=== PATIENT | female | born 1970 | race Caucasian/White ===

== ENCOUNTER 2020-04-16 13:27 | Outpatient (REF) | payer OTHER, SELFPAY ==
--- NOTE | 2020-04-16 | MM_ITS ---
EXAMINATION: MM SCREENING DIGITAL BREAST TOMOSYNTHESIS, BILATERAL CLINICAL INFORMATION: Screening. Asymptomatic. The lifetime risk of breast cancer based on the Tyrer-Cuzick Model is 15.6%. COMPARISON: Mammography: October 09, 2018 and studies dating back to July 07, 2011 TECHNIQUE: Digital breast tomosynthesis is performed in both the craniocaudal and mediolateral oblique views along with computer-aided detection (CAD). Synthesized 2D images are generated from the tomosynthesis. FINDINGS: There are scattered areas of fibroglandular density (ACR BI-RADS breast composition Category b). There are no significant masses, abnormal calcifications, or other abnormalities. Stable region of architectural distortion seen upper outer aspect of the left breast. MM/MM tomosynthesis screening BI IMPRESSION: There are no significant changes from prior study. ASSESSMENT: BI-RADS 2: Benign RECOMMENDATION: Routine annual mammography screening. This patient's information was entered into a reminder system with a target due date for their next mammogram.
== END 2020-04-16 13:28 | disposition home or self-care (01) ==
LOC: HO.MAMMO 13:27
PROVIDERS: Visit Provider Obstetrics & Gynecology
DX: Z12.31 Encounter for screening mammogram for malignant neoplasm of breast (principal)
CPT/HCPCS: 77063; 77067

== ENCOUNTER 2021-04-20 12:42 | Outpatient (REF) | payer OTHER, SELFPAY ==
--- NOTE | ~2021-04-20 | MM_ITS ---
EXAMINATION: MM SCREENING DIGITAL BREAST TOMOSYNTHESIS, BILATERAL CLINICAL INFORMATION: Screening. Asymptomatic. Family history breast cancer: Mother, maternal grandmother, maternal aunt. The lifetime risk of breast cancer based on the Tyrer-Cuzick Model is 17%. COMPARISON: Mammography: 04/16/2020, 10/09/2018, 07/10/2017, 07/03/2017, 06/20/2016; targeted right breast ultrasound 07/10/2017. TECHNIQUE: Digital breast tomosynthesis is performed in both the craniocaudal and mediolateral oblique views along with computer-aided detection (CAD). Synthesized 2D images are generated from the tomosynthesis. FINDINGS: There are scattered areas of fibroglandular density (ACR BI-RADS breast composition Category b). Parenchymal pattern is similar to prior studies. There is no interval mass or developing density or architectural abnormality. Chronic bilateral nipple retraction is again noted. There are no abnormal calcifications. The axilla are unremarkable. No significant changes. MM/MM tomosynthesis screening BI IMPRESSION: No mammographic evidence of malignancy. ASSESSMENT: BI-RADS 2: Benign RECOMMENDATION: Routine annual mammography screening. This patient's information was entered into a reminder system with a target due date for their next mammogram.
== END 2021-04-20 12:43 | disposition home or self-care (01) ==
LOC: HO.MAMMO 12:42
PROVIDERS: PCP Internal Medicine; Visit Provider Internal Medicine
DX: Z12.31 Encounter for screening mammogram for malignant neoplasm of breast (principal)
CPT/HCPCS: 77063; 77067

== ENCOUNTER 2021-08-11 12:59 | Outpatient (REF) | payer OTHER, SELFPAY ==
[2021-08-18 06:47] LABS: HPV mRNA E6/E7 rflx Not Detected (Not Detected)
== END 2021-08-11 13:00 | disposition home or self-care (01) ==
LOC: HO.LAB 12:59
PROVIDERS: PCP Internal Medicine; Visit Provider Advanced Practice Midwife
DX: Z01.411 Encounter for gynecological examination (general) (routine) with abnormal findings (principal); Z11.51 Encounter for screening for human papillomavirus (HPV); R23.2 Flushing; F41.9 Anxiety disorder, unspecified; R10.2 Pelvic and perineal pain; N93.9 Abnormal uterine and vaginal bleeding, unspecified
CPT/HCPCS: 87624; 88142

== ENCOUNTER 2021-08-25 14:24 | Outpatient (REF) | payer OTHER, SELFPAY ==
--- NOTE | ~2021-08-25 | US_ITS ---
EXAMINATION: US PELVIS CLINICAL INFORMATION: Pain COMPARISON: Previous pelvic ultrasound CT of the abdomen and pelvis from 2013 TECHNIQUE: Ultrasound of the pelvis is performed using both transabdominal and transvaginal transducers along with Doppler. Transvaginal imaging is performed due to inadequate visualization transabdominally. FINDINGS: The uterus is anteverted and measures 11.3 x 8.4 x 8.4 cm in dimension. There are multiple focal uterine lesions suggestive of fibroids. These appear increased in size and number compared to previous pelvic ultrasound. There is a 4.3 x 4.9 x 5 cm fibroid in the lower uterine segment/cervix, 3.7 x 4 x 5 cm lesion in the anterior upper uterine body, 3.4 x 2.3 x 2.9 cm lesion or subserosal to the upper anterior uterine body/fundus, 2.8 x 3.3 x 2.6 cm in the posterior uterine body and 3.7 x 2.5 x 2.1 cm in the posterior upper uterine body. The endometrium is not well visualized. The ovaries are seen transabdominally only and are normal-appearing. The right ovary measures 2.9 x 1.2 x 2.1 cm. The left ovary measures 2.3 x 0.9 x 2.1 cm. There is no fluid in the pelvis. US/US pelvic and transvaginal IMPRESSION: Enlarged fibroid uterus. Endometrium not seen secondary to fibroids. Normal-appearing ovaries.
== END 2021-08-25 14:25 | disposition home or self-care (01) ==
LOC: HO.HMGCX 14:24
PROVIDERS: PCP Internal Medicine; Visit Provider Advanced Practice Midwife
DX: R10.2 Pelvic and perineal pain (principal)
CPT/HCPCS: 76830; 76856

== ENCOUNTER 2023-04-24 13:26 | Outpatient (REF) | payer OTHER, SELFPAY | END 2023-04-24 13:27 | disposition home or self-care (01) | LOC: HO.MAMMO 13:26 | DX: Z12.31 Encounter for screening mammogram for malignant neoplasm of breast (principal) | CPT/HCPCS: 77063; 77067 ==

== ENCOUNTER → 2023-04-24 13:45 | Outpatient (BNV) | payer OTHER, SELFPAY | PROVIDERS: Visit Provider Radiology Diagnostic Radiology | DX: Z12.31 Encounter for screening mammogram for malignant neoplasm of breast (principal) | CPT/HCPCS: 77063; 77067 ==

== ENCOUNTER 2023-07-05 13:08 | Outpatient (AMB) | payer OTHER, SELFPAY ==
--- NOTE | 2023-07-05 13:11 | MHC.OFFVIS ---
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 She is doing well with no concerns. She is seen by her Senior Telecommunications Consultant provider who treats for estrogen and progesterone, unclear of the dose, used for transitioning with hot flashes, weight gain, and mood changes. Menopausal x2 years. History of large uterine fibroids. Requests refill on her Valtrex, would like enough to have daily continuous dosing at times if needed. Attempting to eat a healthy diet with calcium and vitamin D and stays active with exercise. Currently sexually active w/. Denies any vaginal dryness or irritation. STI testing offered; she declines. Last pap smear; 2021. Last mammogram; 2023. Colonoscopy is UTD. Denies any family history of breast, ovarian or colon cancer. [facility] Medical History (Updated 07/05/23 @ 14:07 by Nataliia Myles CNM) Fibroids Surgical History Hx of section Family History Mother Lymphoma History of breast cancer, Onset Age: 60 Skin cancer Father Lung cancer Social History (Updated 07/05/23 @ 13:18 by MC Ochoa) Alcohol intake: former Patient Tobacco Use Status: Never used Tobacco Sexual orientation: Straight/Heterosexual Gender identity: Female Female Reproductive History Menstrual Menopause type: natural Total pregnancies: 3 Full term: 3 Number of Living Children: 3 Date of last pap smear: 08/11/21 (neg pap and hpv) Date of Mammogram: 04/24/23 (Birad 1) Review of Systems Const All systems reviewed & are unremarkable except as noted in HPI and below Reports as per HPI Eyes Reports no additional complaints ENT Reports no additional complaints Card Reports no additional complaints Resp Reports no additional complaints GI Reports as per HPI and Reports no additional complaints Reports as per HPI Musc Reports no additional complaints Skin/Breast Reports as per HPI Neuro Reports no additional complaints Psych Reports no additional complaints Endo Reports no additional complaints Pascual/Lymph Reports no additional complaints Aller/Immun Reports no additional complaints Physical Exam Vital Signs: Last Vital Signs BP 106/74 07/05/23 13:12 BMI result Body Mass Index 21.4 Const General: cooperative, healthy appearing, no acute distress, well developed and alert Orientation/consciousness: patient oriented x3 HEENT Head: Yes normal to inspection Eyes General: appearance normal, both eyes and all related structures Neck Neck: Yes normal visual inspection Thyroid: Thyroid normal Chest Chest palpation & inspection: normal inspection of the chest and other (no puckering, dimpling, peau de orange, retraction, discharge, masses) Breast/axilla inspection: normal inspection of the breasts Breast/axilla palpation: normal palpation of the breasts Resp Effort & Inspection: normal respiratory effort GI Inspection: Yes normal to inspection Palpation (GI): Soft to palpation Rectal Exam - Female: deferred General: Yes bladder normal to palpation External Female Exam: normal external appearance and normal appearance of the urethra Speculum Exam - Vagina: normal appearance of the vagina, normal palpation and normal vaginal discharge Speculum Exam - Cervix: normal appearance of the cervix and normal palpation Bimanual exam- vagina & uterus: normal bimanual exam, normal palpation, bladder normal to palpation, normal palpation, non-tender and enlarged Bimanual Exam- Adnexa, other: no masses Skin General skin exam: no rashes or lesions noted Rashes: no rashes Neuro General: patient oriented x3 Cognition (Neuro): normal cognition Extrem General: Yes normal to inspection Psych Attitude: cooperative Thought process: Normal thought process present Assessment & Plan Assessment & Plan (1) Encounter for well woman exam with routine gynecological exam: Code(s): Z01.419 - Encounter for gynecological examination (general) (routine) without abnormal findings (2) Leiomyoma: Code(s): D21.9 - Benign neoplasm of connective and other soft tissue, unspecified Plan Discussed: Current recommendations for pap smears per ASCCP guidelines. Breast awareness, periodic self breast exams and yearly mammogram. Maintain a healthy lifestyle, well balanced diet including Calcium 1,200 mg and Vitamin D 600 IU daily, and routine exercise. Counseled re: Leiomyoma: common pelvic neoplasm. Differential diagnosis-may include leiomyosarcoma which is a rare uterine sarcoma 3-7/100,000, difficult to distinguish from fibroids on ultrasound from uterine sarcoma's. Unlikely any single test will have a highly positive predictive value. Report any postmenopausal bleeding, pelvic pressure, bloating, or pain. Ultrasound for checking fibroid stability, plan tele visit follow-up due to the patient living in [place]. Patient verbalizes understanding and agrees to the plan of care. She was given opportunity to ask questions and all questions were answered to the best of my ability. 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 This note is constructed using voice recognition software. While every effort has been made to ensure accuracy, foam machine operator errors may have been included. Orders: Orders US pelvic and transvaginal Today D21.9 - Benign neoplasm of connective and other soft tissue, unspecified Medications: Refilled valacyclovir (Valtrex) take with onset on of symptoms, take for three days, may repeat dosing per episode prn 500 mg PO BID 90 tabs 1RF
[2023-07-05 13:12] VITALS: BP 106/74; BMI 21.4
== END 2023-07-05 14:12 | disposition home or self-care (01) ==
PROVIDERS: Visit Provider Advanced Practice Midwife
DX: Z01.419 Encounter for gynecological examination (general) (routine) without abnormal findings (principal); D21.9 Benign neoplasm of connective and other soft tissue, unspecified
CPT/HCPCS: 99396

== ENCOUNTER → 2023-07-05 13:08 | Outpatient (BNVA) | payer OTHER, SELFPAY | PROVIDERS: Visit Provider Advanced Practice Midwife ==

== ENCOUNTER 2023-07-19 12:53 | Outpatient (REF) | payer OTHER, SELFPAY ==
--- NOTE | ~2023-07-19 | US_ITS ---
EXAMINATION: US PELVIS COMPLETE CLINICAL INFORMATION: Uterine fibroids; postmenopausal patient. COMPARISON: Pelvic ultrasound dated 08/25/2021. TECHNIQUE: Transabdominal and transvaginal imaging were performed. FINDINGS: The uterus is of normal size and echogenicity, measuring 12.5 x 7.9 x 9.3 cm. The uterus is anteverted. The endometrial stripe is poorly visualized due to uterine fibroids. FIBROIDS: There are 5 fibroids seen. 1. Location: Lower uterine segment, myometrial. Size: 6.4 x 5.9 x 6.8 cm. Prior: 4.3 x 4.9 x 5.0 cm. Fibroid characteristics: Heterogeneous echotexture. 2. Location: Anterior upper body, myometrial. Size: 3.8 x 2.7 x 4.0 cm. Fibroid characteristics: Heterogeneous echotexture. 3. Location: Anterior upper body, subserosal. Size: 2.4 x 1.5 cm. Prior: 3.4 x 2.3 x 2.9 cm. Fibroid characteristics: Hypoechoic. 4. Location: Posterior upper body, myometrial. Size: 2.6 x 2.8 x 2.5 cm. Prior: 2.8 x 3.3 x 2.6 cm. Fibroid characteristics: Heterogeneous echotexture. 5. Location: Posterior upper body, myometrial. Size: 2.9 x 2.7 x 3.1 cm. Prior: 3.7 x 2.5 x 2.1 cm Fibroid characteristics: Heterogeneous echotexture. Both ovaries are of normal size and echogenicity. The right ovary measures 1.2 x 1.3 x 0.9 cm for a volume of 0.7 mL. The left ovary measures 1.3 x 1.5 x 1.0 cm for a volume of 1.0 mL. There is no pelvic free fluid. No adnexal mass is seen. US/US pelvic and transvaginal IMPRESSION: There is uterine fibroid disease. Otherwise, unremarkable examination.
== END 2023-07-19 12:54 | disposition home or self-care (01) ==
LOC: HO.US 12:53
PROVIDERS: Visit Provider Advanced Practice Midwife
DX: D21.9 Benign neoplasm of connective and other soft tissue, unspecified (principal)
CPT/HCPCS: 76830; 76856

== ENCOUNTER 2023-08-15 15:40 | Outpatient (AMB) | payer OTHER, SELFPAY ==
--- NOTE | 2023-08-15 15:40 | MHC.OFFVIS ---
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 Phone call due to Covid 19 Pandemic. I spent 10 minutes speaking with the patient on the phone plus an additional 5 minutes reviewing the chart and 5 minutes updating the medical record for a total of 20minutes. Patient presents via phone to discuss: Ultrasound results, history of uterine fibroids, she reports discomfort with her fibroids. Menopausal x2 years, no history of postmenopausal bleeding. [facility] Medical History (Updated 08/15/23 @ 16:37 by Nataliia Myles CNM) Fibroids Surgical History Hx of section Family History Mother Lymphoma History of breast cancer, Onset Age: 60 Skin cancer Father Lung cancer Social History Alcohol intake: former Patient Tobacco Use Status: Never used Tobacco Patient : No Sexual orientation: Straight/Heterosexual Gender identity: Female Female Reproductive History Menstrual control method: none Review of Systems Const All systems reviewed & are unremarkable except as noted in HPI and below Endo Reports no additional complaints Physical Exam Const General: cooperative, healthy appearing and no acute distress Psych Appearance: well kempt Attitude: cooperative Thought process: Normal thought process present Telehealth Telehealth Telehealth Platform: [employer] Location of provider rendering services: practice address Location of patient: address on file Patient Identification confirmed using: Name, : Yes Telehealth method: video Patient verbally consented to treatment: Yes Patient verbally consented to billing insurance company: Yes Patient informed of any privacy concerns related to visit: Yes Assessment & Plan Assessment & Plan (1) Uterine fibroid: Code(s): D25.9 - Leiomyoma of uterus, unspecified Category: Medical Qualifiers: Uterine leiomyoma location: unspecified location Qualified Code(s): D25.9 - Leiomyoma of uterus, unspecified Plan: Discussed: Ultrasound findings reviewed, 1 of the larger fibroid with increased size noted over the last 2 years, ongoing discomfort from fibroids. Counseled re: Leiomyoma: common pelvic neoplasm. Differential diagnosis-may include leiomyosarcoma which is a rare uterine sarcoma 3-7/100,000, difficult to distinguish from fibroids on ultrasound from uterine sarcoma's. Unlikely any single test will have a highly positive predictive value. Hysterectomy is not recommended for sole purpose of excluding malignant neoplasm. Report any PMB. Pelvic pressure, bloating, or pain. Consult for surgical exploration verses expectant management discussed. Patient prefers consult for surgical removal or other options. Referral placed to pilot submersible at [facility]. All of her questions and concerns were addressed to the best of my ability and shared decision making. She is agreeable to the plan of care. This note is constructed using voice recognition software. While every effort has been made to ensure accuracy, computer systems auditor errors may have been included. Orders: Referrals INTAKE MANAGER Referral D25.9 - Leiomyoma of uterus, unspecified Coding Level of Care Code Tele Est Pt Level 3 (07055) Diagnoses Uterine leiomyoma, unspecified location D25.9 Uterine leiomyoma location: unspecified location
== END 2023-08-15 16:28 | disposition home or self-care (01) ==
LOC: HO.HWS 15:40
PROVIDERS: Visit Provider Advanced Practice Midwife
DX: D25.9 Leiomyoma of uterus, unspecified (principal)
CPT/HCPCS: 99213

== ENCOUNTER → 2023-08-15 15:40 | Outpatient (BNVA) | payer OTHER, SELFPAY | PROVIDERS: Visit Provider Advanced Practice Midwife ==

== ENCOUNTER 2024-05-14 14:32 | Outpatient (REF) | payer OTHER, SELFPAY ==
--- OUTSIDE RECORDS SUMMARY | 2024-05-14 17:59 | XMS_ITS | Clinical Summary ---
[facility] Address [address] [place] [address] Care Team Providers Care Installer Metal Flooring Name Role Phone Syl Mattson Primary Care Provider [phone] Allergies No known active allergies Medications multivitamin capsule Take 1 capsule by mouth daily. Active Lactobacillus rhamnosus (CULTURELLE) 10 billion cell capsule Take 1 capsule by mouth daily. 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 Bilateral nephrolithiasis 10/05/2020 Left ureteral stone 10/05/2020 Social History Tobacco Use Types Packs/Day Years Used Date Smoking Tobacco: Never Smokeless Tobacco: Never Alcohol Use Standard Drinks/Week Comments Yes 0 (1 standard drink = 0.6 oz pur e alcohol) Comments Unknown Sex and Gender Information Value Date Recorded Sex Assigned at Female 09/28/2020 10:42 AM EDT Legal Sex Female 2:52 PM EDT Gender Identity Female 09/28/2020 10:42 AM EDT Sexual Orientation Not on file Last Filed Vital Signs Vital Sign Reading Time Taken Comments Blood Pressure - - Pulse - - Temperature - - Respiratory Rate - - Oxygen Saturation - - Inhaled Oxygen Concentration - - Weight 62.6 kg (138 lb) 11/02/2020 2:04 PM EDT Height 172.7 cm (5' 8 ) 11/02/2020 2:04 PM EDT Body Mass Index 20.98 11/02/2020 2:04 PM EDT Plan of Treatment Not on file Insurance [employer] Care Teams Installer Metal Flooring Relationship Specialty Start Date End Date Syl Mattson [address] [place] [address] PCP - General 09/15/20
--- OUTSIDE RECORDS SUMMARY | 2024-05-14 17:59 | XMS_ITS | Continuity of Care Document ---
Author Organization [facility]. If a dditional information is needed, contact Health Information Management at [phone] Address [address] [place] [address] Phone Care Team Providers Care Supercharge Repair Supervisor Name Role Phone Unavailable Unavailable Unavailable Unavailable Unavailable Unavailable Unavailable Unavailable Unavailable Unavailable Unavailable Unavailable Unavailable Unavailable Unavailable Unavailable Unavailable Unavailable Unavailable Unavailable Unavailable Unavailable Unavailable Unavailable Unavailable Unavailable Unavailable Unavailable Unavailable Unavailable Unavailable Unavailable Unavailable Problems Cystitis Onset:22-Sep-2023 Leonard BELTRÁN Status:Acute Uterine leiomyoma Onset:22-Sep-2023 Leonard BELTRÁN Status:Acute Uterine leiomyoma Onset:22-Sep-2023 Leonard BELTRÁN Status:Acute Urinary tract infectious dis ease Onset:10-Sep-2020 Aviva Cohn DO Left flank pain Onset:10-Sep-2020 Aviva Cohn DO Ureteric stone Onset:07-Sep-2020 Berkley Llanos MD Neck pain Onset:04-Sep-2018 Roger Cohn DO Muscle spasm of cervical mus luna of neck Onset:04-Sep-2018 Roger Cohn DO Allergies and Adverse Reactions No Known Allergies(Allergy) Onset: 21-Sep-2023 Medications iopamidoL 76%;100 ML ONCE Quantity:1 Arncristi Corin DO Start:7-Ram-0014Bjc:21-Sep-19 24 cefTRIAXone;1 G X1ED Quantity:1 Leonard BELTRÁN Start:2-Wzy-8249Osc:21-Sep-19 10 ML sodium chloride 9 MG/M L Injection;1500 ML X1ED Quantity:2 Leonard BELTRÁN Start:5-Gdk-8600Nix:21-Sep-19 24 sulfamethoxazole 800 mg-trimethoprim 160 mg tablet;1 tab PO BID Start:21-Sep-2023 Comments:1 tab PO BID Procedures CT abdomen pelvis w conResult:[address] [facility] [place] [address] [place] Scan Report SignedPatient: Emily Stoner MR#: [id number]: 1970 Acct:[id number]/Sex: 53 / F ADM Date: 09/21/23Loc/Rm/Bed: EMERGENCY ROOM SERVICES /Attending Dr:Ordering Physician: ANTOINETTE Buckate of Service: 09/21/23Procedure(s): CT abdomen pelvis w conAccession Number(s): [id number]: .NO PCP; JEREL Buck PATIENT NAME: Emily Stoner ( ) PATIENT DATE OF : 1970 (53 years old) PROCEDURES: CT abdomen pelvis w con ORDERING CLINICIAN: JEREL Buck REQUISITION HISTORY: fever, R CVA tenderness EXAM: CT scan of the abdomen and pelvis with contrast INDICATION: fever, R CVA tenderness. TECHNIQUE: Contiguous 5 mm helically acquired axial images of the abdomen and pelvis were obtainedfollowing uneventful intravenous administration of contrast. Sagittal and coronal reformations were also provided. One or more of the following dose optimization techniques were used: automated exposure control;adjustment of the mA and/or kV according to patient size; use of iterative reconstruction technique. [facility] QUALITY MEASURES #364 and #405: Appropriate follow-up imaging for incidental lesions: In this report, any dictated pulmonary nodule, adrenal lesion, or cystic renal lesion withoutstated specific follow-up recommendations is to be considered incidental and per consensus recommendations requires nofollow-up imaging. (Bryanna et al., 2017) MIPS QUALITY MEASURE #406: Appropriate follow-up imaging for incidental lesions: In this report, any dictated thyroid nodule without stated specific follow-up recommendations is gm considered incidental and per consensus recommendations requires no follow-up imaging (ACR, 2014). SOURCE: Bryanna H, Frank DP, Abel JM, et al. Guidelines for Management of Incidental PulmonaryNodules Detected on CT Images: From the Fleischner Society 2017. Radiology. 2017 b 23:670007. MIPS Quality Measure #360: Count of CT/Cardiac NM Imaging Studies: In the past twelve months, including the current scan, the patient has had 1 CT scans, and 0myocardial perfusion scans. INTRAVENOUS CONTRAST: Isovue 370, 100 ml. ORAL CONTRAST: None COMPARISON: CT scan of the abdomen and pelvis 09/07/2020ORDER #: [id number] CT/CT abdomen pelvis w conFINDINGS/IMPRESSION:Since 2020, the patient has lost a significant amount of adipose.No biliary obstruction.Bilateral nephrolithiasis, unchanged. Mild right hydronephrosis without an obstructing stone.Nonspecific urothelialenhancement involving the right and left ureters. These findings can be seen with recent passage ofa urinary stone.Correlate with urinalysis looking for hematuria. Urothelial enhancement of the ureters can also beseen with underlyingurinary tract infection. This can also be correlated with urinalysis an urine culture.Nonspecific gallbladder hydrops. No cholecystitis.Unchanged large fibroid uterus with numerous bulky leiomyomata compressing the urinary bladder andadjacent loops ofbowel.Electronically signed by: LOIDA SALAZAR DO 09/21/2023 7:32 PM Signed on workstation: [id number] By: Loida Salazar DOSigned By: <Electronically signed by Loida Salazar DO in OV> 09/21/23 1932DD/ TD/TT: Dental Patient Coordinator: Date:21-Sep-2023 Status:Completed EKG 12 lead electrocardiogramResult:[place] [address] Electrocardiogram Report SignedPatient: Emily Stoner MR#: [id number]: 1970 Acct:[id number]/Sex: 53 / F ADM Date: 09/21/23Loc/Rm/Bed: EMERGENCY ROOM SERVICES / Date of Service: 09/21/23Attending Dr: Corin Santana DOcc:Test Reason : Blood Pressure : / mmHG Vent. Rate : 084 BPM Atrial Rate : 084 BPM P-R Int : 146 ms QRS Dur : 078 ms QT Int : 342 ms P-R-T Axes : 031 020 038 degrees QTc Int : 404 ms Normal sinus rhythm Low voltage QRS Borderline ECG When compared with ECG of 04-SEP-2018 19:07, Nonspecific T wave abnormality now evident in Anterior leads Confirmed by NEWTON MORTENSEN ([id number]) on 09/23/2023 5:21:14 PM Referred By: Self Referred Confirmed By:NEWTON SMITHISDictated By: Brennon Dao By: <Electronically signed by Newton Mortensen DO in OV> 09/23/23 1721DD/ TD/TT: 09/21/231818 Dental Patient Coordinator: Date:21-Sep-2023 Status:Completed Social History Smoking Status Never smoked tobacco Recorded: 10-Sep-2020 Never smoked tobacco Recorded: 07-Sep-2020 Tobacco smoking consumption unknown Recorded: Results Complete Blood Count w Diff Ordered On:21-Sep-2023 18:35 Basophils Absolute Auto0.0210*3/uL(Normal) Range:010*3/uL-0.210*3/uL Basophils Percent Auto0.2% Eosinophils Absolute Auto0.0310*3/uL(Normal) Range:010*3/uL-0.810*3/uL Eosinophils Percent Auto0.2% Hematocrit Gvrvoo71.7%(Normal) Range:34%-44% Hemoglobin kkwcae84.4g/dL(Normal) Range:11g/dL-15g/dL Immature Granulocyte s Abs Auto0.0410*3/uL(High) Range:0.0110*3/uL-0.0210*3/uL Immature Granulocyte s Pct Auto0.3% Lymphocytes Absolute Auto1.1110*3/uL(Normal) Range:0.610*3/uL-510*3/uL Lymphocytes Percent Auto8.6% MEAN CELL HGB32.8pg(Normal) Rang e:27pg-33pg MEAN CELL HGB YVDKYMGLITZNI83.6g/dL(Normal) Range:31g/dL-36g/dL MEAN CELL FHLPON88.9fL(Normal) Range:80fL-100fL Monocytes Absolute Auto1.7710*3/uL(High) Range:010*3/uL-1.310*3/uL Monocytes Percent Auto13.8% MEAN PLATELET WIIIXI69.5fL(Normal) Range:7fL-11fL Neutrophils Absolute Auto9.8810*3/uL(High) Range:1.410*3/uL-8.310*3/uL Neutrophils Percent Auto76.9% NRBC Absolute Auto0.0010*3/uL(Normal) Range:010*3/uL-0.0110*3/uL NRBC Percent Auto0.0% Platelet Mtirt99154*3/uL(Normal) Range:21644*3/uL-60339*3/uL RED BLOOD CELL4.0810*6/uL(Normal) Range:3.710*6/uL-5.110*6/uL RDW Standard Qtmrbyums77.9fL(Normal) Range:36.4fL-46.3fL WHITE BLOOD CELL12.8510*3/uL(High) Range:3.910*3/uL-1110*3/uL Prothrombin Time INR Ordered On:21-Sep-2023 18:49 INR1.1(Low) Range:2-3 Comments:INR reference interval applies to patients on anticoagulanttherapy. Suggested INR therapeutic range for oralanticoagulant therapy (stabilized anticoagulated patients): Routine Therapy: 2.0 - 3.0 Recurrent Myocardial Infarction or Mechanical Prosthetic Valves: 2.5 - 3.5 Prothrombin Time12.3{sec}(High) Range:9.5{sec}-12.1{sec} Comprehensive Metabolic Panel Ordered On:21-Sep-2023 19:31 Albumin Globulin Ratio0.67 ALBUMIN3.1g/dL(Low) Range:3.4g/d L-5g/dL Alkaline Phosphatase ALP77{Units/L}(Normal) Range:45{Units/L}-117{Units/L} Alanine Aminotransfe rase ALT27{Units/L}(Normal) Range:13{Units/L}-61{Units/L} Aspartate Aminotrans ferase AST14{Units/L}(Low) Range:15{Units/L}-37{Units/L} BUN Creatinine Ratio13.3(Normal) Range:8-27 Bilirubin Total0.6mg/dL(Normal) Range:0.2mg/dL-1mg/dL Blood Urea Zorxnznr83cd/dL(Normal) Range:10mg/dL-24mg/dL Calcium9.3mg/dL(Normal) Range:8. 5mg/dL-10.1mg/dL CORRECTED LDESIFC14.0mg/dL(Normal) Range:8.5mg/dL-10.1mg/dL Mnahxqdh424haiq/L(Normal) Range: 98mmol/L-108mmol/L Carbon Mblmyja04obsm/L(Normal) Range:21mmol/L-32mmol/L ESTIMATED CREATININE CLEAR63.3 CREATININE0.83mg/dL(Normal) Rang e:0.55mg/dL-1.02mg/dL Estimated Glomerular Filt Rate83.2(Normal) Range:>=60 mL/min/1.73m2 ANION GAP8(Normal) Range:5-15 Globulin4.6{gm/dL}(High) Range:1 .9{gm/dL}-4.5{gm/dL} GLUTETHIMIDE (DORADEM)118mg/dL(High) Range:74mg/dL-106mg/dL POTASSIUM3.5mmol/L(Normal) Range :3.5mmol/L-5.1mmol/L Fkdqgy721ynkf/L(Normal) Range:13 5mmol/L-145mmol/L Total Protein7.7g/dL(Normal) Ran ge:6.4g/dL-8.2g/dL Magnesium Ordered On:21-Sep-2023 19:31 Magnesium1.9mg/dL(Normal) Range :1.6mg/dL-2.6mg/dL Lactic Acid Ordered On:21-Sep-2023 19:56 Lactic Acid1.2mmol/L(Normal) Ra nge:0.4mmol/L-2mmol/L Blood Culture Ordered On:21-Sep-2023 Comments:[place] owens Comments: Comment PRIOR TO ANTIBIOTICS FROM 2 DIFFERENT SITES 26-Sep-2023 18:25 Blood CultureNo grow th in 5 days Blood Culture Ordered On:21-Sep-2023 18:41 Blood CultureNo grow th in 5 days Urinalysis w/Cul if indicated Ordered On:21-Sep-2023 Comments:Specimen Comments: Indication for culture Dysuria/frequencyNoteUrinary Catheters in place >14 days may have biofilmpresent. Consider changing before collection unlesscontraindicated.Clean catch midstream 21-Sep-2023 18:34 UA APPEARANCEClear Range:Clear UA BILIRUBIN DIPSTICKSmallmg/dL(Abnormal) Range:Negative mg/dL UA BLOOD DIPSTICKModeratemg/dL(Abnorma l) Range:Negative mg/dL UA COLORDark Yellow(Abnormal) Ra nge:Yellow UA Glucose DipstickNegativemg/dL Range:Negative mg/dL UA KETONE IRELGJGH41wt/dL(Abnormal) Range:Negative mg/dL UA LEUKOCYTE ESTERAS E DIPSTICKTrace{Kendrick/uL}(Abnorma l) Range:Negative Kendrick/uL UA NITRITE DIPSTICKNegative Rang e:Negative UA PH DIPSTICK6.0(Normal) Range: 5-8 UA PROTEIN OGMAKUEW51cg/dL(Abnormal) Range:Negative mg/dL UA SPECIFIC GRAVITY1.018(Normal) Range:1.005-1.03 Urine Microscopic IndicatedYes(Abnormal) UA Urobilinogen Dipstick1.0EU/dL Range:0.2EU/dL-1EU/dL 21-Sep-2023 18:39 Bacteria Urine (Automated)None Seen{/hpf} Range:None Seen /HPF Hyaline Cast Urine (Automated)0-8{/lpf} Range:None Seen /LPF Squamous Epithelial Ur (Auto)>50{/lpf}(Abnormal) Range:None Seen /LPF RBC Urine (Automated)10-50{/hpf}(Abnorm al) Range:None Seen /hpf Urine Culture IndicatedNo WBC Urine (Automated)6-10{/hpf}(Abnorma l) Range:0{/hpf}-5{/hpf} Vital Signs 21-Sep-2023 19:23 Ikfeiwjbfuy86h Vooatwllizc39.2c O2 SAT98% Pulse79 Respiratory Rate17 BP Sskbambz903tv[Hg] BP Vchhabycm84fc[Hg] 21-Sep-2023 18:14 Pulse86 21-Sep-2023 18:02 Qestcjxivdb321.9f Nzokvfrudsb88.3c O2 SAT97% Pulse91 Respiratory Rate16 BMI21.1kg/m2 BP Qwnrsvty188is[Hg] BP Xpvjmonre76mv[Hg] Height5.8670331[ft_us] Ccnzxt226.48cm Yurucq971.415883na Encounters Emergency Encounter Reason:WORSENING UTI SX Encounter Diagnosis:Cystitis, unspecified without hematuria,Hydronephrosis with renal and ureteral calculous obstruction,Leiomyoma of uterus, unspecified 21-Sep-2023 18:02Zs4-Gmr-8932 20:32 [facility] Discharge Disposition:Discharged to home or self care (routine discharge) ? ? ? Leonard BELTRÁN-21-Sep-2023 [facility] [place] [address] [place] [address] Emergency Department Note SignedPatient: Emily Stoner MR#: [id number]: 1970 Acct:[id number]/Sex: 53 / F ADM/SRV Date: 09/21/23Loc: F.ED Service Date: 09/21/23Attending Dr: Service Time: 1809cc: Report ID#: [id number] by User: JEREL Buck 09/21/23 23:12EM-HPI:Gen/Med Clear/Rx RefillFree Text HPI NotesThis is a 53-year-old female with a history of nephrolithiasis presenting here today for theevaluation of fever, flank pain, and abdominal pain. She states she was diagnosed with cystitis onSunday but is overall had symptoms since Sunday. She was started on Macrobid. She reports thatthe preceding symptoms are typical for her when she has a bladder infection. She reports she doesnot typically get dysuria or urinary frequency, and does not have any of this today. Denies chestpain, shortness of breath, nausea, vomiting, diarrhea, or constipation.PresentationTime Seen by Provider: 09/21/23 18:09Chief Complaint Text: Abdominal and flank painEM-Review of SystemsROS StatementsAll systems rev neg: except as marked.Review of SystemsConstitutional: Reports FeverGI: Reports Abdominal painGU Female: Reports Flank painEM-PE:Gen/Med Clear/Rx RefillFree Text PE NotesGen: well hydrated, no acute distress, afebrileHEENT: normocephalic, atraumaticPulm: normal breath sounds bilaterally, clear to auscultation in all espitia without rales, ronchi,or wheezesChest: equal expansion bilaterallyCV: normal rate, regular rhythm, normal s1/s2, no murmurs, rubs, or gallopsAbd: soft, suprapubid tenderness, non- distended, + guarding, R CVA tendernessMSK: normal range of motion with grossly normal extremitiesNeuro: alert and orientedPsych: normal mood and affectVital SignsReview of Vital Signs: Reviewed and Vital signs abnormal Vital SignsTemperature 100.9 F H 09/21/23 18:02Pulse 91 09/21/23 18:02Respiratory rate 16 09/21/23 18:02Blood pressure 111/70 09/21/23 18:02SPO2 % 97 09/21/23 18:02Oxygen delivery devices Room air 09/21/23 18:02Temperature 99.0 F 09/21/23 19:23Pulse 79 09/21/23 19:23Respiratory rate 17 09/21/23 19:23Blood pressure 121/70 09/21/23 19:23SPO2 % 98 09/21/23 19:23Oxygen delivery devices Room air 09/21/23 19:23EM-Interp DiagnosticsLabs/Imaging/Results/Old Records 09/21/23 18:20 09/21/23 18:20All Labs/Micro/Interp Last 24 Hrs:Laboratory Results - last 24 hr 09/21/23 09/21/23 18:20 18:14WBC 12.85 HRBC 4.08Hgb 13.4Hct 38.7MCV 94.9MCH 32.8MCHC 34.6RDW Std Deviation 42.9Plt Count 268MPV 10.5Immature Gran % (Auto) 0.3Neut % (Auto) 76.9Lymph % (Auto) 8.6Mono % (Auto) 13.8Eos % (Auto) 0.2Baso % (Auto) 0.2Abs Immat Gran (auto) 0.04 HAbsolute Neuts (auto) 9.88 HAbsolute Lymphs (auto) 1.11Absolute Monos (auto) 1.77 HAbsolute Eos (auto) 0.03Absolute Basos (auto) 0.02Absolute Nucleated RBC 0.00Nucleated RBC % (auto) 0.0PT 12.3 HINR 1.1 LSodium 136Potassium 3.5Chloride 103Carbon Dioxide 25Anion Gap 8BUN 11Creatinine 0.83Estimated Creat Clear 63.3Estimated GFR 83.2BUN/Creatinine Ratio 13.3Glucose 118 HLactic Acid 1.2Calcium 9.3Corrected Calcium 10.0Magnesium 1.9Total Bilirubin 0.6AST 14 LALT 27Alkaline Phosphatase 77Total Protein 7.7Albumin 3.1 LGlobulin 4.6 HAlbumin/Globulin Ratio 0.67Urine Color Dark Yellow AUrine Appearance ClearUrine pH 6.0Ur Specific [place] 1.018Urine Protein 30 AUrine Glucose (UA) NegativeUrine Ketones 40 AUrine Blood Moderate AUrine Nitrite NegativeUr Bilirubin, Qual Small AUrobilinogen Dipstick 1.0Ur Leukocyte Esterase Trace AUr Microscopic Indic Yes AUrine WBC (Auto) 6-10 AUrine RBC (Auto) 10-50 AU Hyaline Cast (Auto) 0-8Urine Bacteria (Auto) None SeenSquamous Epi Cells Auto >50 AUr Culture Indicated? NoImpressionsAbdomen/Pelvis CT 09/21/23 18:55FINDINGS/IMPRESSION:Since 2020, the patient has lost a significant amount of adipose.No biliary obstruction.Bilateral nephrolithiasis, unchanged. Mild right hydronephrosis without an obstructing stone.Nonspecific urothelialenhancement involving the right and left ureters. These findings can be seen with recent passage ofa urinary stone.Correlate with urinalysis looking for hematuria. Urothelial enhancement of the ureters can also beseen with underlyingurinary tract infection. This can also be correlated with urinalysis an urine culture.Nonspecific gallbladder hydrops. No cholecystitis.Unchanged large fibroid uterus with numerous bulky leiomyomata compressing the urinary bladder andadjacent loops ofbowel.Electronically signed by: LOIDA SALAZAR DO 09/21/2023 7:32 PM Signed on workstation: [id number]:Gen/Med Clear/Rx RefillFree Text MDM NotesThis on her exam there is some concern for possible pyelonephritis. She also has a history ofnephrolithiasis and there is the potential for an infected renal calculus. Her presentation isadditionally complicated by known fibroids which have been recommended to be taken out, however sheis pursuing a 2nd opinion in [place] in the near future. It is possible that some of the sensationshe is currently experiencing could be related to mass effect. Upon her arrival she also metcriteria for sepsis with a heart rate greater than 90 and temperature of 100.9F. She will beevaluated with a CBC, CMP, PT/INR, lactic, cultures, urinalysis, and CT of her abdomen pelvis. 1 gof Rocephin is given as well as a 30 cc per kg ideal body weight fluids.An EKG was performed. This was reviewed and interpreted by myself and shows normal sinus rhythmwith a heart rate of 84 beats per minute. Her WI, QRS, and QTC are of normal duration. She hasdiffuse T-wave flattening. There are no ST T-wave abnormalities concerning for acute ischemia. Herwhite blood count returned at 12.85. Her PT and INR were minimally abnormal. There were no priorsfor comparison. Her electrolytes and renal function is within normal limits. Her lactic is 1.2.Her urinalysis is contaminated, but potential consistent with infection. Her CT showed irritationof the proximal ureters potentially consistent with infection verses recent passing of stones. Nostones were identified. There was no perinephric stranding. She was also noted to have compressionof her bladder and bowel secondary to her fibroids.These results were discussed with the patient. Her Macrobid will be changed to Bactrim. She willfollow-up with her cardiac rehabilitation program director to discuss excision of the fibroids. She is stable at the time ofdischarge given return precautions.Portions of this document were created using voice dictation and as a result may inadvertently include minor errors. Please consider context when interpreting. inED CourseMedication(s) Ordered:Discontinued Medication Ysivld76/05/24 18:11cefTRIAXone [Rocephin] 1 g water for injection,sterile [Sterile Water for injection 10 mL] 10 mlIV X1ED Rx Indication:: UTI-Cystitis Rx Duration in Doses:: 1sodium chloride 0.9% [Normal Saline 1,000 mL] 1,500 ml IV X1ED09/21/23 19:19iopamidoL 76% [Isovue-370] 100 ml IV ONCE ONEDischarge PlanED Discharge PlanClinical Impression: Fibroid, uterine, Leiomyoma of body of uterus, CystitisDisposition Decision: Discharge to homeDate of Decision: 09/21/23Time of Decision: 20:18Prescriptions:New sulfamethoxazole-trimethoprim [Bactrim DS] 800-160 mg tablet 1 tab PO BID Qty: 20 0RFPatient Education: [facility] ED Standard Education for ...Dispo Assessment:Disposition-DC,TX,ADM,LPT Last Done: 09/21/23 20:31Activity Restrictions/Additional Instructions:You were seen in the ER today for pain in the setting of a bladder infection. There is no CTevidence of pyelonephritis today, but there is at least some irritation of the ureters very close tothe kidneys. It is also possible a large amount of your discomfort is related to your uterinefibroid. Your antibiotic has been changed. Please seek re-evaluation for worsening rather thanimproving symptoms.Condition: FairED Midlevel Provider: Lucretia Valle Provider: Pam Santana-Depart/Critical CareVital SignsVital Signs: Vital SignsTemperature 100.9 F H 09/21/23 18:02Pulse 91 09/21/23 18:02Respiratory rate 16 09/21/23 18:02Blood pressure 111/70 09/21/23 18:02SPO2 % 97 09/21/23 18:02Oxygen delivery devices Room air 09/21/23 18:02Temperature 99.0 F 09/21/23 19:23Pulse 79 09/21/23 19:23Respiratory rate 17 09/21/23 19:23Blood pressure 121/70 09/21/23 19:23SPO2 % 98 09/21/23 19:23Oxygen delivery devices Room air 09/21/23 19:23 Docum ented by User: Efren Hayden MD 09/22/23 01:34EM-HPI:Gen/Med Clear/Rx RefillPresentationTime Seen by Provider: 09/21/23 18:09EM-PE:Gen/Med Clear/Rx RefillVital Signs Vital SignsTemperature 100.9 F H 09/21/23 18:02Pulse 91 09/21/23 18:02Respiratory rate 16 09/21/23 18:02Blood pressure 111/70 09/21/23 18:02SPO2 % 97 09/21/23 18:02Oxygen delivery devices Room air 09/21/23 18:02Temperature 99.0 F 09/21/23 19:23Pulse 79 09/21/23 19:23Respiratory rate 17 09/21/23 19:23Blood pressure 121/70 09/21/23 19:23SPO2 % 98 09/21/23 19:23Oxygen delivery devices Room air 09/21/23 19:23EM-Interp DiagnosticsLabs/Imaging/Results/Old Records 09/21/23 18:20 09/21/23 18:20All Labs/Micro/Interp Last 24 Hrs:Laboratory Results - last 24 hr 09/21/23 09/21/23 18:20 18:14WBC 12.85 HRBC 4.08Hgb 13.4Hct 38.7MCV 94.9MCH 32.8MCHC 34.6RDW Std Deviation 42.9Plt Count 268MPV 10.5Immature Gran % (Auto) 0.3Neut % (Auto) 76.9Lymph % (Auto) 8.6Mono % (Auto) 13.8Eos % (Auto) 0.2Baso % (Auto) 0.2Abs Immat Gran (auto) 0.04 HAbsolute Neuts (auto) 9.88 HAbsolute Lymphs (auto) 1.11Absolute Monos (auto) 1.77 HAbsolute Eos (auto) 0.03Absolute Basos (auto) 0.02Absolute Nucleated RBC 0.00Nucleated RBC % (auto) 0.0PT 12.3 HINR 1.1 LSodium 136Potassium 3.5Chloride 103Carbon Dioxide 25Anion Gap 8BUN 11Creatinine 0.83Estimated Creat Clear 63.3Estimated GFR 83.2BUN/Creatinine Ratio 13.3Glucose 118 HLactic Acid 1.2Calcium 9.3Corrected Calcium 10.0Magnesium 1.9Total Bilirubin 0.6AST 14 LALT 27Alkaline Phosphatase 77Total Protein 7.7Albumin 3.1 LGlobulin 4.6 HAlbumin/Globulin Ratio 0.67Urine Color Dark Yellow AUrine Appearance ClearUrine pH 6.0Ur Specific [place] 1.018Urine Protein 30 AUrine Glucose (UA) NegativeUrine Ketones 40 AUrine Blood Moderate AUrine Nitrite NegativeUr Bilirubin, Qual Small AUrobilinogen Dipstick 1.0Ur Leukocyte Esterase Trace AUr Microscopic Indic Yes AUrine WBC (Auto) 6-10 AUrine RBC (Auto) 10-50 AU Hyaline Cast (Auto) 0-8Urine Bacteria (Auto) None SeenSquamous Epi Cells Auto >50 AUr Culture Indicated? NoImpressionsAbdomen/Pelvis CT 09/21/23 18:55FINDINGS/IMPRESSION:Since 2020, the patient has lost a significant amount of adipose.No biliary obstruction.Bilateral nephrolithiasis, unchanged. Mild right hydronephrosis without an obstructing stone.Nonspecific urothelialenhancement involving the right and left ureters. These findings can be seen with recent passage ofa urinary stone.Correlate with urinalysis looking for hematuria. Urothelial enhancement of the ureters can also beseen with underlyingurinary tract infection. This can also be correlated with urinalysis an urine culture.Nonspecific gallbladder hydrops. No cholecystitis.Unchanged large fibroid uterus with numerous bulky leiomyomata compressing the urinary bladder andadjacent loops ofbowel.Electronically signed by: LOIDA SALAZAR DO 09/21/2023 7:32 PM Signed on workstation: [id number]:Gen/Med Clear/Rx RefillED CourseMedication(s) Ordered:Discontinued Medication Oyfnkj02/05/24 18:11cefTRIAXone [Rocephin] 1 g water for injection,sterile [Sterile Water for injection 10 mL] 10 mlIV X1ED Rx Indication:: UTI-Cystitis Rx Duration in Doses:: 1sodium chloride 0.9% [Normal Saline 1,000 mL] 1,500 ml IV X1ED09/21/23 19:19iopamidoL 76% [Isovue-370] 100 ml IV ONCE ONEDischarge PlanED Discharge PlanClinical Impression: Fibroid, uterine, Leiomyoma of body of uterus, CystitisDisposition Decision: Discharge to homeDate of Decision: 09/21/23Time of Decision: 20:18Prescriptions:New sulfamethoxazole-trimethoprim [Bactrim DS] 800-160 mg tablet 1 tab PO BID Qty: 20 0RFPatient Education: [facility] ED Standard Education for ...Dispo Assessment:Disposition-DC,TX,ADM,LPT Last Done: 09/21/23 20:31Activity Restrictions/Additional Instructions:You were seen in the ER today for pain in the setting of a bladder infection. There is no CTevidence of pyelonephritis today, but there is at least some irritation of the ureters very close tothe kidneys. It is also possible a large amount of your discomfort is related to your uterinefibroid. Your antibiotic has been changed. Please seek re-evaluation for worsening rather thanimproving symptoms.Condition: FairED Midlevel Provider: Lucretia Valle Provider: Pam Santana-Depart/Critical CareVital SignsVital Signs: Vital SignsTemperature 100.9 F H 09/21/23 18:02Pulse 91 09/21/23 18:02Respiratory rate 16 09/21/23 18:02Blood pressure 111/70 09/21/23 18:02SPO2 % 97 09/21/23 18:02Oxygen delivery devices Room air 09/21/23 18:02Temperature 99.0 F 09/21/23 19:23Pulse 79 09/21/23 19:23Respiratory rate 17 09/21/23 19:23Blood pressure 121/70 09/21/23 19:23SPO2 % 98 09/21/23 19:23Oxygen delivery devices Room air 09/21/23 19:23Supervising Physician Notes[MidLv Saw Pt Alone]I have reviewed the PA/JV BASEBALL COACH's note and plan of care. I was available for consultation as needed at alltimes during the patient's visit in the emergency department. I agree with the clinical impression,plan and disposition.Documented By: JEREL Buck 09/21/230Signed By: <Electronically signed by JEREL Valle> 09/21/23 2312 <Electronically signed by Efren Hayden MD> 09/22/23 0134 Plan of Treatment Future Tests Future scheduled test information is unavailable Pending Tests Test Name Ordered Date Scheduled Date Blood Culture September 21, 2023 6:20pm Blood Culture September 21, 2023 6:20pm Future Visits Future appointment information is unavailable Referrals to Other Providers Referral information is unavailable Future Procedures Procedure Name Ordered Date Scheduled Date Blood Culture September 21, 2023 6:11pm September 21, 2023 6:20pm Blood Culture September 21, 2023 6:11pm September 21, 2023 6:20pm Code Sepsis September 21, 2023 6:11pm September 21, 2023 6:11pm CT Contrast Dosing Protocol September 21, 2023 6:55p m September 21, 2023 6:56pm Future Medications Future medication information is unavailable Patient Instructions Instruction Admit Date CAP ED Standard Education for ... September 202023 6:02pm
--- OUTSIDE RECORDS SUMMARY | 2024-05-14 17:59 | XMS_ITS | Clinical Summary ---
Author Organization [facility] Address [phone] Formerly [facility] [place] [address] [place] [address] Care Team Providers Care Engineer Assistant Name Role Phone Kim Gross DO Primary Care Provider + Allergies No known active allergies Medications No known medications Social History Tobacco Use Types Packs/Day Years Used Date Smoking Tobacco: Never Passive Smoke Exposure: Never Smokeless Tobacco: Never Education Answer Date Recorded Are you interested in more education? Not on robby e 07/15/2022 Are you concerned about learning? Not on file 07/15/2022 No 07/15/2022 No 07/15/2022 Digital Access Answer Date Recorded No 08/13/2022 No 08/13/2022 Reliable internet access at home? Not on file 08/13/2022 Device with a working camera? Not on file Sex and Gender Information Value Date Recorded Sex Assigned at Female 08/31/2021 2:02 PM EDT Gender Identity Female 08/31/2021 2:02 PM EDT Sexual Orientation Straight 08/31/2021 2: 28 PM EDT Last Filed Vital Signs Vital Sign Reading Time Taken Comments Blood Pressure 114/55 10/22/2023 12:28 PM EDT Pulse 74 10/22/2023 12:28 PM EDT Temperature - - Respiratory Rate - - Oxygen Saturation 100% 10/22/2023 12:28 PM EDT Inhaled Oxygen Concentration - - Weight 53.6 kg (118 lb 1.6 oz) 10/22/2023 12:28 PM EDT Height 162.5 cm (5' 3.98 ) 10/22/2023 12:28 PM E DT Body Mass Index 20.29 10/22/2023 12:28 PM EDT Plan of Treatment Health Maintenance Due Date Last Done Comments Adult Td,Tdap Booster 1970 LIPID PANEL 1968 DEPRESSION SCREENING 1980 HEPATITIS B SCREENING 1986 HEPATITIS C SCREENING 1986 HIV ONE-TIME SCREENING (18-6 5 YEARS) 1986 HEPATITIS B VACCINES (1 of 3 - 19+ 3-dose series) 1987 PAP SMEAR 1989 MAMMOGRAM 2008 COLOGUARD 2013 COLONOSCOPY 2013 COLORECTAL CANCER SCREENING 2013 FIT TEST 2013 FOBT 2013 SIGMOIDOSCOPY 2013 VIRTUAL COLONOSCOPY 2013 PNEUMOCOCCAL VACCINES (50+ y ears) (1 of 1 - PCV) 2018 ZOSTER VACCINES (1 of 2) 2018 INFLUENZA VACCINE (#1) 2023 COVID-19 VACCINE ( - 2023-2 5 season) 2023 SMOKING STATUS SCREENING (On ce After 26 Yrs) Completed 10/22/2023 HEPATITIS A VACCINES Aged Out No long er eligible based on patient's age to complete this topic HIB VACCINES Aged Out No longer eligi ble based on patient's age to complete this topic MENINGOCOCCAL VACCINES (ACWY) Aged Out No longer eligible based on patient's age to complete this topic Medical Devices Not on file Care Teams Engineer Assistant Relationship Specialty Start Date End Date Kim Gross DO [address] [facility] [address] [place] [address] PCP - General Family Medicine 08/31/21 Additional Source Comments The information contained in this document represents components of the legal health record. It is not the complete legal health record.[facility]
== END 2024-05-14 14:33 | disposition home or self-care (01) ==
LOC: HO.MAMMO 14:32
PROVIDERS: Visit Provider Advanced Practice Midwife
DX: Z12.31 Encounter for screening mammogram for malignant neoplasm of breast (principal)
CPT/HCPCS: 77063; 77067

== ENCOUNTER → 2024-05-14 14:45 | Outpatient (BNV) | payer OTHER, SELFPAY | PROVIDERS: Visit Provider Internal Medicine | DX: Z12.31 Encounter for screening mammogram for malignant neoplasm of breast (principal) | CPT/HCPCS: 77063; 77067 ==

== ENCOUNTER → 2024-06-11 15:01 | Outpatient (BNVA) | payer OTHER, SELFPAY | PROVIDERS: Visit Provider Advanced Practice Midwife ==

== ENCOUNTER 2024-08-06 15:07 | Outpatient (AMB) | payer OTHER, SELFPAY ==
--- OUTSIDE RECORDS SUMMARY | 2024-08-06 15:09 | XMS_ITS | Clinical Summary ---
Author Organization [facility] Address [address] [place] [phone] Phone Care Team Providers Care Environmental Professional Name Role Phone OnielKim morales Primary Care Provider + Allergies No known [...] with a working camera? Not on file Comments No Sex and Gender Information Value Date Recorded Sex Assigned at Female 08/31/2021 2:02 PM EDT Legal Sex Female 1:54 PM EDT Gender Identity Female 08/31/2021 2:02 [...] 2018 INFLUENZA VACCINE (#1) 2023 COVID-19 VACCINE (1 - 2023-2 5 season) 2023 SMOKING STATUS [...] this topic Medical Devices Not on file Insurance CIGNA PPO CIGNA PPO CIGNA PPO CIGNA PPO CIGNA PPO CIGNA PPO CIGNA PPO CIGNA PPO CIGNA PPO Care Teams Environmental Professional Relationship Specialty Start Date End Date Kim Gross DO [address] [address] PCP - General Family Medicine 08/31/21 Additional Source Comments The information contained in this document represents components of the legal health record. It is not the complete legal health record.[facility]
--- OUTSIDE RECORDS SUMMARY | 2024-08-06 15:09 | XMS_ITS | Clinical Summary ---
[facility] Address [address] [place] [address] Care Team Providers Care Brand Engineer Name Role Phone Syl Mattson Primary Care Provider Allergies No known active allergies Medications multivitamin [...] Not on file Insurance [employer] Care Teams Brand Engineer Relationship Specialty Start Date End Date [address] [place] [address] PCP - General 09/15/20
--- OUTSIDE RECORDS SUMMARY | 2024-08-06 15:09 | XMS_ITS | Continuity of Care Document ---
Author Organization [facility]. If a dditional information is needed, contact Health Information Management at [phone] Address [address] [place] [address] Phone Care Team Providers Care Field Artillery Senior Sergeant Name Role Phone Unavailable Unavailable Unavailable Unavailable Unavailable Unavailable Unavailable Unavailable Unavailable Unavailable Unavailable Unavailable Unavailable Unavailable Unavailable Unavailable Unavailable Unavailable Unavailable Unavailable Unavailable Unavailable Unavailable Unavailable Unavailable Unavailable Unavailable Unavailable Unavailable Unavailable Unavailable Unavailable Unavailable Problems Uterine leiomyoma Onset:22-Sep-2023 Leonard BELTRÁN Status:Acute Uterine leiomyoma Onset:22-Sep-2023 Leonard BELTRÁN Status:Acute Cystitis Onset:22-Sep-2023 Leonard BELTRÁN Status:Acute Left flank pain Onset:10-Sep-2020 Aviva Cohn DO Urinary tract infectious dis ease Onset:10-Sep-2020 Aviva Cohn DO Ureteric stone Onset:07-Sep-2020 Berkley Llanos MD Neck pain Onset:04-Sep-2018 Roger Cohn DO Muscle spasm of cervical mus luna of neck Onset:04-Sep-2018 Roger Cohn DO Allergies and Adverse Reactions No Known Allergies(Allergy) Onset: 21-Sep-2023 Medications iopamidoL 76%;100 ML ONCE Quantity:1 Arncristi Corin DO Start:0-Htq-5677Xmw:21-Sep-19 24 cefTRIAXone;1 G X1ED Quantity:1 Leonard BELTRÁN Start:3-Awy-3560Jab:21-Sep-19 24 10 ML sodium chloride 9 MG/M L Injection;1500 ML X1ED Quantity:2 Leonard BELTRÁN Start:4-Xnl-1042Rmc:21-Sep-19 24 sulfamethoxazole 800 mg-trimethoprim 160 mg tablet;1 tab PO BID Start:21-Sep-2023 Comments:1 tab PO BID Procedures CT abdomen pelvis w conResult:[address] [facility] [place] [address] CT Scan Report SignedPatient: Emily Stoner MR#: [id number]: 1970 Acct:[id number]/Sex: 53 / F ADM Date: 09/21/23Loc/Rm/Bed: EMERGENCY ROOM SERVICES /Attending Dr:Ordering Physician: ANTOINETTE Buckate of Service: 09/21/23Procedure(s): CT abdomen pelvis w conAccession Number(s): [id number]: .NO PCP; JEREL Buck PATIENT NAME: Emily [...] patient size; use of iterative reconstruction technique. [facility] QUALITY MEASURES #364 and #405: [...] the Fleischner Society 2017. Radiology. 2017 b 23:460323. MIPS Quality Measure #360: Count of CT/Cardiac NM Imaging Studies: In the past twelve months, including the current scan, the patient has had 1 CT scans, and 0myocardial perfusion scans. INTRAVENOUS CONTRAST: Isovue 370, 100 ml. ORAL CONTRAST: None COMPARISON: CT scan of the abdomen and pelvis 09/07/2020ORDER #: [id number] CT/CT abdomen pelvis w conFINDINGS/IMPRESSION:Since 2020, the [...] DO 09/21/2023 7:32 PM Signed on workstation: [id number] By: Loida Salazar DOSigned By: <Electronically signed by Loida Salazar DO in OV> 09/21/23 1932DD/ TD/TT: Packaging Supervisor: Date:21-Sep-2023 Status:Completed EKG 12 lead electrocardiogramResult:[place] [address] Electrocardiogram Report SignedPatient: Emily Stoner MR#: [id number]: 1970 Acct:[id number]/Sex: 53 / F ADM Date: 09/21/23Loc/Rm/Bed: EMERGENCY [...] in Anterior leads Confirmed by NEWTON MORTENSEN ([id number]) on 09/23/2023 5:21:14 PM Referred By: Self Referred Confirmed By:NEWTON SMITHISDictated By: Brennon Dao By: <Electronically signed by Newton Mortensen DO in OV> 09/23/23 1721DD/ TD/TT: 09/21/231818 Packaging Supervisor: Date:21-Sep-2023 Status:Completed Social History Smoking Status Never smoked tobacco Recorded: 10-Sep-2020 Never smoked tobacco Recorded: 07-Sep-2020 Tobacco smoking consumption unknown Recorded: Results Complete Blood Count w Diff Ordered On:21-Sep-2023 18:35 Basophils Absolute Auto0.0210*3/uL(Normal) Range:010*3/uL-0.210*3/uL Basophils Percent Auto0.2% Eosinophils Absolute Auto0.0310*3/uL(Normal) Range:010*3/uL-0.810*3/uL Eosinophils Percent Auto0.2% Hematocrit Cmmlnm16.7%(Normal) Range:34%-44% Hemoglobin fnovrq18.4g/dL(Normal) Range:11g/dL-15g/dL Immature Granulocyte s Abs Auto0.0410*3/uL(High) Range:0.0110*3/uL-0.0210*3/uL Immature Granulocyte s Pct Auto0.3% Lymphocytes Absolute Auto1.1110*3/uL(Normal) Range:0.610*3/uL-510*3/uL Lymphocytes Percent Auto8.6% MEAN CELL HGB32.8pg(Normal) Rang e:27pg-33pg MEAN CELL HGB UCNPXFYKVREMU01.6g/dL(Normal) Range:31g/dL-36g/dL MEAN CELL GXQDLG15.9fL(Normal) Range:80fL-100fL Monocytes Absolute Auto1.7710*3/uL(High) Range:010*3/uL-1.310*3/uL Monocytes Percent Auto13.8% MEAN PLATELET ASMEQW06.5fL(Normal) Range:7fL-11fL Neutrophils Absolute Auto9.8810*3/uL(High) Range:1.410*3/uL-8.310*3/uL Neutrophils Percent Auto76.9% NRBC Absolute Auto0.0010*3/uL(Normal) Range:010*3/uL-0.0110*3/uL NRBC Percent Auto0.0% Platelet Dkbzx43442*3/uL(Normal) Range:26043*3/uL-51370*3/uL RED BLOOD CELL4.0810*6/uL(Normal) Range:3.710*6/uL-5.110*6/uL RDW Standard Alsfggaba55.9fL(Normal) Range:36.4fL-46.3fL WHITE BLOOD CELL12.8510*3/uL(High) Range:3.910*3/uL-1110*3/uL Prothrombin Time [...] Ratio13.3(Normal) Range:8-27 Bilirubin Total0.6mg/dL(Normal) Range:0.2mg/dL-1mg/dL Blood Urea Cxxesqhx72mv/dL(Normal) Range:10mg/dL-24mg/dL Calcium9.3mg/dL(Normal) Range:8. 5mg/dL-10.1mg/dL CORRECTED PZIVPDP96.0mg/dL(Normal) Range:8.5mg/dL-10.1mg/dL Oxjpeloi416awzc/L(Normal) Range: 98mmol/L-108mmol/L Carbon Fwtrzym47mhtz/L(Normal) Range:21mmol/L-32mmol/L ESTIMATED CREATININE CLEAR63.3 CREATININE0.83mg/dL(Normal) Rang e:0.55mg/dL-1.02mg/dL Estimated Glomerular Filt Rate83.2(Normal) Range:>=60 mL/min/1.73m2 ANION GAP8(Normal) Range:5-15 Globulin4.6{gm/dL}(High) Range:1 .9{gm/dL}-4.5{gm/dL} GLUTETHIMIDE (DORADEM)118mg/dL(High) Range:74mg/dL-106mg/dL POTASSIUM3.5mmol/L(Normal) Range :3.5mmol/L-5.1mmol/L Jvogct723bayu/L(Normal) Range:13 5mmol/L-145mmol/L Total Protein7.7g/dL(Normal) Ran ge:6.4g/dL-8.2g/dL Magnesium [...] UA Glucose DipstickNegativemg/dL Range:Negative mg/dL UA KETONE POOUOGPN91et/dL(Abnormal) Range:Negative mg/dL UA LEUKOCYTE ESTERAS E DIPSTICKTrace{Kendrick/uL}(Abnorma l) Range:Negative Kendrick/uL UA NITRITE DIPSTICKNegative Rang e:Negative UA PH DIPSTICK6.0(Normal) Range: 5-8 UA PROTEIN WNOUIKQV19xs/dL(Abnormal) Range:Negative mg/dL UA SPECIFIC GRAVITY1.018(Normal) Range:1.005-1.03 Urine Microscopic IndicatedYes(Abnormal) UA Urobilinogen Dipstick1.0EU/dL Range:0.2EU/dL-1EU/dL 21-Sep-2023 18:39 Bacteria Urine (Automated)None Seen{/hpf} Range:None Seen /HPF Hyaline Cast Urine (Automated)0-8{/lpf} Range:None Seen /LPF Squamous Epithelial Ur (Auto)>50{/lpf}(Abnormal) Range:None Seen /LPF RBC Urine (Automated)10-50{/hpf}(Abnorm al) Range:None Seen /hpf Urine Culture IndicatedNo WBC Urine (Automated)6-10{/hpf}(Abnorma l) Range:0{/hpf}-5{/hpf} Vital Signs 21-Sep-2023 19:23 Waupdzjjare94t Obenkmpcaew30.2c O2 SAT98% Pulse79 Respiratory Rate17 BP Qvhvlyum488bi[Hg] BP Vahvwntfk01wv[Hg] 21-Sep-2023 18:14 Pulse86 21-Sep-2023 18:02 Jvyclcodfnw199.9f Uvedrvuzudc03.3c O2 SAT97% Pulse91 Respiratory Rate16 BMI21.1kg/m2 BP Kaqhpghs822pk[Hg] BP Wjckdsinf41ni[Hg] Height5.1657856[ft_us] Zqdpgj095.48cm Zpuyxl425.191494iw Encounters Emergency Encounter Reason:WORSENING UTI SX Encounter Diagnosis:Cystitis, unspecified without hematuria,Hydronephrosis with renal and ureteral calculous obstruction,Leiomyoma of uterus, unspecified 21-Sep-2023 18:74Yv6-Oyy-1893 20:32 [facility] Discharge Disposition:Discharged to home or self care (routine discharge) ? ? ? Leonard BELTRÁN-21-Sep-2023 [facility] [place] [address] Emergency Department Note SignedPatient: Emily Stoner MR#: [id number]: 1970 Acct:[id number]/Sex: 53 / F ADM/SRV Date: 09/21/23Loc: F.ED Service Date: 09/21/23Attending Dr: Service Time: 1809cc: Report ID#: [id number] by User: JEREL Buck 09/21/23 23:12EM-HPI:Gen/Med Clear/Rx [...] Yellow AUrine Appearance ClearUrine pH 6.0Ur Specific [place] 1.018Urine Protein 30 AUrine Glucose (UA) NegativeUrine [...] DO 09/21/2023 7:32 PM Signed on workstation: [id number]:Gen/Med Clear/Rx RefillFree Text MDM NotesThis on her exam there is some concern for possible pyelonephritis. She also has a history ofnephrolithiasis and there is the potential for an infected renal calculus. Her presentation isadditionally complicated by known fibroids which have been recommended to be taken out, however sheis pursuing a 2nd opinion in [place] in the near future. It is possible [...] rate of 84 beats per minute. Her NE, QRS, and QTC are of normal duration. [...] changed to Bactrim. She willfollow-up with her emergency room physician assistant to discuss excision of the fibroids. She is stable at the time ofdischarge given return precautions.Portions of this document were created using voice dictation and as a result may inadvertently include minor errors. Please consider context when interpreting. inED CourseMedication(s) Ordered:Discontinued Medication Hbiyxu73/05/24 18:11cefTRIAXone [Rocephin] 1 g water for injection,sterile [...] Yellow AUrine Appearance ClearUrine pH 6.0Ur Specific [place] 1.018Urine Protein 30 AUrine Glucose (UA) NegativeUrine [...] DO 09/21/2023 7:32 PM Signed on workstation: [id number]:Gen/Med Clear/Rx RefillED CourseMedication(s) Ordered:Discontinued Medication Kerzmq76/05/24 18:11cefTRIAXone [Rocephin] 1 g water for injection,sterile [...] Notes[MidLv Saw Pt Alone]I have reviewed the PA/TRIPE WASHER's note and plan of care. I was [...]
--- NOTE | 2024-08-06 15:10 | A.OFFVIS_ITS ---
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 History of large fibroids. 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 Seeing naturopathic provider in [place] Shasha Toney NP at the [facility] for her HRT. No consult notes are available today for either provider. Currently sexually active, reports discomfort due to fibroids. Denies any vaginal dryness or irritation. STI testing offered; she declines. Attempting to eat a healthy diet with calcium and vitamin D and stays active with exercise. Last pap smear; 2021, negative. Last mammogram; 2024. Colonoscopy is UTD. Denies any family history of breast, ovarian or colon cancer. [facility] Medical History Fibroids Surgical History Hx of section Family History Mother Lymphoma History of breast cancer, Onset Age: 60 Skin cancer Father Lung cancer Social History Alcohol intake: former Patient Tobacco Use Status: Never used Tobacco Sexual orientation: Straight/Heterosexual Gender identity: Female Female Reproductive History Menstrual Menopause type: natural Total pregnancies: 3 Full term: 3 Number of Living Children: 3 Date of last pap smear: 08/11/21 (neg pap and hpv) Date of Mammogram: 05/14/24 (Birad 1) Review of Systems Const All systems reviewed & are unremarkable except as noted in HPI and below Reports as per HPI Eyes Reports no additional complaints ENT Reports no additional complaints Card Reports no additional complaints Resp Reports no additional complaints GI Reports as per HPI and Reports no additional complaints Reports as per HPI Musc Reports no additional complaints Skin/Breast Reports as per HPI Neuro Reports no additional complaints Psych Reports no additional complaints Endo Reports no additional complaints Pascual/Lymph Reports no additional complaints Aller/Immun Reports no additional complaints Physical Exam Vital Signs: Last Vital Signs BP 102/60 08/06/24 15:12 BMI result Body Mass Index 23.2 Const General: cooperative, healthy appearing, no acute distress, well developed and alert Orientation/consciousness: patient oriented x3 HEENT Head: Yes normal to inspection Eyes General: appearance normal, both eyes and all related structures Neck Neck: Yes normal visual inspection Thyroid: Thyroid normal Chest Chest palpation & inspection: normal inspection of the chest and other (no puckering, dimpling, peau de orange, retraction, discharge, masses) Breast/axilla inspection: normal inspection of the breasts Breast/axilla palpation: normal palpation of the breasts Resp Effort & Inspection: normal respiratory effort GI Inspection: Yes normal to inspection Palpation (GI): Soft to palpation Rectal Exam - Female: deferred General: Yes bladder normal to palpation External Female Exam: normal external appearance and normal appearance of the urethra Speculum Exam - Vagina: normal appearance of the vagina, normal palpation and normal vaginal discharge Speculum Exam - Cervix: normal appearance of the cervix and normal palpation (Rotated to the left) Bimanual exam- vagina & uterus: normal bimanual exam, normal palpation, uterine size normal, bladder normal to palpation, normal palpation (Rotated to the left), enlarged (18 week size, slightly tender) and Uterine tenderness Bimanual Exam- Adnexa, other: no masses Skin General skin exam: no rashes or lesions noted Rashes: no rashes Neuro General: patient oriented x3 Cognition (Neuro): normal cognition Extrem General: Yes normal to inspection Psych Attitude: cooperative Thought process: Normal thought process present Results Reviewed Results Reviewed: [address] [address] Ultrasound Report Signed Patient: Emily Stoner MR#: [id number] : 1970 Acct:[id number] Age/Sex: 53 / F ADM Date: 07/19/23 Loc: HO.US Attending Dr: Nataliia Myles CNM Ordering Physician: Nataliia yMles CNM Date of Service: 07/19/23 Procedure(s): US pelvic and transvaginal Accession Number(s): [id number] cc: Nataliia Myles CNM~ EXAMINATION: US PELVIS COMPLETE CLINICAL INFORMATION: Uterine fibroids; postmenopausal patient. COMPARISON: Pelvic ultrasound dated 08/25/2021. TECHNIQUE: Transabdominal and transvaginal imaging were performed. FINDINGS: The uterus is of normal size and echogenicity, measuring 12.5 x 7.9 x 9.3 cm. The uterus is anteverted. The endometrial stripe is poorly visualized due to uterine fibroids. FIBROIDS: There are 5 fibroids seen. 1. Location: Lower uterine segment, myometrial. Size: 6.4 x 5.9 x 6.8 cm. Prior: 4.3 x 4.9 x 5.0 cm. Fibroid characteristics: Heterogeneous echotexture. 2. Location: Anterior upper body, myometrial. Size: 3.8 x 2.7 x 4.0 cm. Fibroid characteristics: Heterogeneous echotexture. 3. Location: Anterior upper body, subserosal. Size: 2.4 x 1.5 cm. Prior: 3.4 x 2.3 x 2.9 cm. Fibroid characteristics: Hypoechoic. 4. Location: Posterior upper body, myometrial. Size: 2.6 x 2.8 x 2.5 cm. Prior: 2.8 x 3.3 x 2.6 cm. Fibroid characteristics: Heterogeneous echotexture. 5. Location: Posterior upper body, myometrial. Size: 2.9 x 2.7 x 3.1 cm. Prior: 3.7 x 2.5 x 2.1 cm Fibroid characteristics: Heterogeneous echotexture. Both ovaries are of normal size and echogenicity. The right ovary measures 1.2 x 1.3 x 0.9 cm for a volume of 0.7 mL. The left ovary measures 1.3 x 1.5 x 1.0 cm for a volume of 1.0 mL. There is no pelvic free fluid. No adnexal mass is seen. US/US pelvic and transvaginal IMPRESSION: There is uterine fibroid disease. Otherwise, unremarkable examination. Dictated By: Chico Zamora MD Signed By: <Electronically signed by Chico Zamora MD in OV> 07/27/23 1645 DD/ 1345 TD/TT: Glaze Carrier: ADINA Assessment & Plan Assessment & Plan (1) Encounter for annual routine gynecological examination: Code(s): Z01.419 - Encounter for gynecological examination (general) (routine) without abnormal findings Category: Medical Plan: Discussed: Current recommendations for pap smears per ASCCP guidelines. Breast awareness, periodic self breast exams and yearly mammogram. Maintain a healthy lifestyle, well balanced diet including Calcium 1,200 mg and Vitamin D 600 IU daily, and routine exercise. Contact the office with any postmenopausal bleeding. Patient verbalizes understanding and agrees to the plan of care. She was given opportunity to ask questions and all questions were answered to the best of my ability. RTO in 1 year for annual patch press operator exam. This note is constructed using voice recognition software. While every effort has been made to ensure accuracy, cafeteria helper errors may have been included. (2) Uterine fibroid: Code(s): D25.9 - Leiomyoma of uterus, unspecified Category: Medical Qualifiers: Uterine leiomyoma location: unspecified location Qualified Code(s): D25.9 - Leiomyoma of uterus, unspecified Plan Counseled re: Leiomyoma: common pelvic neoplasm. Differential diagnosis-may include but not limited to- leiomyosarcoma which is a rare uterine sarcoma 3- 7/100,000, difficult to distinguish from fibroids on ultrasound from uterine sarcoma's. Unlikely any single test will have a highly positive predictive value. Hysterectomy is not recommended for sole purpose of excluding malignant neoplasm. Consult for surgical exploration, medical treatment, other treatments (not a candidate for ablation), verses expectant management, pros and cons, risks and benefits. Expectant management follow up in 6 months, then yearly for stability. Patient prefers to proceed with expectant management. Referral to MD if indicated for level of care if indicated Report any PMB/AUB, pelvic pressure, bloating, or pain. Plan referral to [facility] for surgical consult due to chronic pelvic pain and dyspareunia. Follow up pending ultrasound results. The patient expressed understanding and agreement with the plan of care. All of her questions and concerns were addressed to the best of my ability. Total time I personally spent on visit and management today: ?15 minutes. Time spent included review of pertinent office notes in the electronic health record; review of laboratory and imaging results; review of personal family medical history; performing physical exam; discussing diagnosis and plan of care with the patient; documenting the encounter in the EMR. Orders: Orders MM tomosynthesis screening BI 08/06/24 Z12.31 - Encounter for screening mammogram for malignant neoplasm of breast Coding Level of Care Code Est Pt Level 2 (27600) Est Pt Prev Care 40-64y(81294) Diagnoses Encounter for annual routine gynecological examination Z01.419 Uterine leiomyoma, unspecified location D25.9 Uterine leiomyoma location: unspecified location
[2024-08-06 15:12] VITALS: BP 102/60; BMI 23.2
== END 2024-08-06 15:54 | disposition home or self-care (01) ==
LOC: HO.HWS 15:07
PROVIDERS: Visit Provider Advanced Practice Midwife
DX: Z01.419 Encounter for gynecological examination (general) (routine) without abnormal findings (principal); D25.9 Leiomyoma of uterus, unspecified
CPT/HCPCS: 99396; 99459

== ENCOUNTER 2024-10-02 13:53 | Outpatient (REF) | payer OTHER, SELFPAY ==
--- NOTE | ~2024-10-02 | US_ITS ---
EXAMINATION: US PELVIS CLINICAL INFORMATION: Uterine leiomyomas COMPARISON: July 19, 2023 TECHNIQUE: Ultrasound of the pelvis is performed using both transabdominal and transvaginal transducers along with Doppler. Transvaginal imaging is performed due to inadequate visualization transabdominally. FINDINGS: Uterus: The uterus is lobulated and enlarged and measures 17 x 8 x 11 cm. The endometrial stripe is obscured by multiple uterine leiomyomas. Extensive uterine leiomyomas are present. The largest is measured for comparison. There is an intramural and submucosal leiomyoma in the lower uterus near the cervix measuring 7.0 x 6.1 x 6.8 cm, previously 6.4 x 5.9 x 6.8 cm. There are numerous other subserosal, intramural, submucosal uterine leiomyomas. Adnexa: On the left ovary is visualized. There is normal color flow to the adnexa. There is no ovarian torsion. There is no pelvic ascites or fluid collection. Right ovary was not seen. Left ovary measures 2.6 x 1.2 x 2.1 cm. US/US pelvic and transvaginal IMPRESSION: Enlarged fibroid uterus likely with underlying adenomyosis. Interval growth is demonstrated since the prior study. Electronically signed by: Aleksandr Munoz MD 10/02/2024 03:30 PM EDT
--- OUTSIDE RECORDS SUMMARY | 2024-10-02 14:36 | XMS_ITS | Clinical Summary ---
Author Organization [facility] Address [address] [place] [address] Care Team Providers Care Analytical Lead Name Role Phone Syl Mattson Primary Care Provider [phone] Allergies No known active allergies Medications multivitamin [...] Not on file Insurance [employer] Care Teams Analytical Lead Relationship Specialty Start Date End Date Syl Mattson [address] [place] [address] PCP - General 09/15/20
== END 2024-10-02 13:54 | disposition home or self-care (01) ==
LOC: HO.HMGCX 13:53
PROVIDERS: Visit Provider Advanced Practice Midwife
DX: D25.9 Leiomyoma of uterus, unspecified (principal); R10.2 Pelvic and perineal pain
CPT/HCPCS: 76830; 76856

== ENCOUNTER → 2024-10-02 14:05 | Outpatient (BNV) | payer OTHER, SELFPAY | PROVIDERS: Visit Provider Radiology Diagnostic Radiology | DX: D25.9 Leiomyoma of uterus, unspecified (principal) | CPT/HCPCS: 76830; 76856 ==

== ENCOUNTER 2024-10-16 11:03 | Outpatient (AMB) | payer OTHER, SELFPAY ==
--- NOTE | 2024-10-16 11:04 | A.OFFVIS_ITS ---
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 Time spent included review of pertinent office notes in the electronic health record; review of laboratory and imaging results; review of personal family medical history; discussing diagnosis and plan of care with the patient; documenting the encounter in the EMR. Patient presents to discuss: History of fibroids. Patient reports she had a consult with [facility] physician last week and the plan is to have an MRI of the pelvis and to consider scheduling surgery. Consult notes not available at the visit today. She reports ongoing pelvic pressure, discomfort, no vaginal bleeding. [facility] Medical History (Updated 08/07/24 @ 11:14 by Nataliia Myles CNM) Fibroids Surgical History Hx of section Family History Mother Lymphoma History of breast cancer, Onset Age: 60 Skin cancer Father Lung cancer Social History Alcohol intake: former Patient Tobacco Use Status: Never used Tobacco Sexual orientation: Straight/Heterosexual Gender identity: Female Review of Systems Const All systems reviewed & are unremarkable except as noted in HPI and below Endo Reports no additional complaints Physical Exam Const General: cooperative, healthy appearing and no acute distress Psych Appearance: well kempt Attitude: cooperative Thought process: Normal thought process present Telehealth Telehealth Telehealth Platform: SI2 - [employer]ema [employer] Informação do [employer] Location of provider rendering services: practice address Location of patient: address on file Patient Identification confirmed using: Name, : Yes Telehealth method: video Patient verbally consented to treatment: Yes Patient verbally consented to billing insurance company: Yes Patient informed of any privacy concerns related to visit: Yes Results Reviewed Results Reviewed: [facility] [address] [place] [address] Ultrasound Report Signed Patient: Emily Stoner MR#: [id number] : 1970 Acct:[id number] Age/Sex: 54 / F ADM Date: 10/02/24 [facility] Att[facility] Dr: Nataliia Myles CNM Ordering Physician: Nataliia Myles CNM Date of Service: 10/02/24 Procedure(s): US pelvic and transvaginal Accession Number(s): [id number] cc: Nataliia Myles CNM~ EXAMINATION: US PELVIS CLINICAL INFORMATION: Uterine leiomyomas COMPARISON: July 19, 2023 TECHNIQUE: Ultrasound of the pelvis is performed using both transabdominal and transvaginal transducers along with Doppler. Transvaginal imaging is performed due to inadequate visualization transabdominally. FINDINGS: Uterus: The uterus is lobulated and enlarged and measures 17 x 8 x 11 cm. The endometrial stripe is obscured by multiple uterine leiomyomas. Extensive uterine leiomyomas are present. The largest is measured for comparison. There is an intramural and submucosal leiomyoma in the lower uterus near the cervix measuring 7.0 x 6.1 x 6.8 cm, previously 6.4 x 5.9 x 6.8 cm. There are numerous other subserosal, intramural, submucosal uterine leiomyomas. Adnexa: On the left ovary is visualized. There is normal color flow to the adnexa. There is no ovarian torsion. There is no pelvic ascites or fluid collection. Right ovary was not seen. Left ovary measures 2.6 x 1.2 x 2.1 cm. US/US pelvic and transvaginal IMPRESSION: Enlarged fibroid uterus likely with underlying adenomyosis. Interval growth is demonstrated since the prior study. Electronically signed by: Aleksandr Munoz MD 10/02/2024 03:30 PM EDT Dictated By: Aleksandr Munoz MD Signed By: <Electronically signed by Aleksandr Munoz MD in OV> 10/02/24 1530 DD/ 1418 TD/TT: 10/02/24 1441 Gang Leader: Assessment & Plan Assessment & Plan (1) Fibroid: Code(s): D21.9 - Benign neoplasm of connective and other soft tissue, unspecified Plan Discussed: Ultrasound findings-enlarging fibroid multiples, largest 7 cm x6 point 1 times 6.8 cm. Patient has a plan with her provider [facility] and will follow up after the MRI for her pre-surgical counseling and scheduling. Advised to send copies of updated records when available. The patient expressed understanding and agreement with the plan of care. All of her questions and concerns were addressed to the best of my ability. Scheduled for annual exam July 2025. This note is constructed using voice recognition software. While every effort has been made to ensure accuracy, automatic lathe tender errors may have been included. Coding Level of Care Code Tele Est Pt Level 3 (23851) Diagnoses Fibroid D21.9
--- OUTSIDE RECORDS SUMMARY | 2024-10-16 11:53 | XMS_ITS | Continuity of Care Document ---
Author Organization [facility]. If a dditional information is needed, contact Health Information Management at [phone] Address [address] [place] [address] Phone Care Team Providers Care Research Environmental Scientist Name Role Phone Unavailable Unavailable Unavailable Unavailable [...] Reactions No Known Allergies(Allergy) Onset: 21-Sep-2023 Medications sulfamethoxazole 800 mg-trim ethoprim 160 mg tablet;1 tab PO BID Start:21-Sep-2023 Comments:1 tab PO BID Social History Smoking Status Never smoked tobacco Recorded: 10-Sep-2020 Never smoked tobacco Recorded: 07-Sep-2020 Tobacco smoking consumption unknown Recorded:
--- OUTSIDE RECORDS SUMMARY | 2024-10-16 11:54 | XMS_ITS | Clinical Summary ---
Author Organization [facility] Address [address] [place] [phone] Phone Care Team Providers Care Brick Veneer Maker Name Role Phone OnielKim morales Primary Care [...] LIPID PANEL 1970 DEPRESSION SCREENING 1980 HEPATITIS C SCREENING 1986 HIV ONE-TIME SCREENING (18-6 5 YEARS) 1986 PAP SMEAR 1989 MAMMOGRAM 2008 COLOGUARD 2013 COLONOSCOPY 2013 COLORECTAL CANCER SCREENING 2013 FIT TEST 2013 FOBT 2013 SIGMOIDOSCOPY 2013 VIRTUAL COLONOSCOPY 2013 PNEUMOCOCCAL VACCINES (50+ y ears) (1 of 1 - PCV) 2018 ZOSTER VACCINES (1 of 2) 2018 COVID-19 VACCINE (1 - 2023-2 5 season) [...] age to complete this topic MENINGOCOCCAL VACCINES (B) Aged Out N o longer eligible based on patient's age to complete this topic Medical Devices Not on file Insurance [facility] PPO CIGNA PPO [employer]IG[employer] PPO [employer] PPO CIGNA PPO [employer] PPO [employer] PPO [employer] PPO Care Teams Brick Veneer Maker Relationship Specialty Start Date End Date Kim Gross DO [address] [address] PCP - General Family Medicine 08/31/21 Additional Source Comments The information contained in this document represents components of the legal health record. It is not the complete legal health record.[facility]
--- OUTSIDE RECORDS SUMMARY | 2024-10-16 11:54 | XMS_ITS | Clinical Summary ---
Author Organization [facility] Address [address] [place] [address] Care Team Providers Care Slat Basket Maker Helper Machine Name Role Phone Syl Mattson MD Primary Care Provider Allergies No known active [...] Not on file Insurance [employer] Care Teams Slat Basket Maker Helper Machine Relationship Specialty Start Date End Date Syl Mattson MD [address] [place] [address] PCP - General 09/15/20
== END 2024-10-16 12:40 | disposition home or self-care (01) ==
LOC: HO.HWS 11:03
PROVIDERS: Visit Provider Advanced Practice Midwife
DX: D25.9 Leiomyoma of uterus, unspecified (principal)
CPT/HCPCS: 99213